=== PATIENT | male | born 1985 | race Caucasian/White ===

== ENCOUNTER 2017-10-20 08:46 | Emergency (ER) | payer MEDICAID, OTHER ==
[2017-10-20 08:54] VITALS: BMI 25.7
[2017-10-20 08:55] VITALS: PULSE 74; RESP 16; TEMP 97.9; O2SAT 98
[2017-10-20 08:57] VITALS: BP 120/77
--- NOTE | 2017-10-20 09:22 | C.PDOC ---
History Of Present Illness 31 years old male presents to the ED for evaluation of bilateral great toe pain for the past 10 years associated with callus. Patient reports pain is 6 out of 10 scale and worsens when wearing shoes for work. [place]. Patient denies any trauma, fever or chills. PMD: non provided Time Seen by Provider: 10/20/17 09:05 Chief Complaint (Nursing): Lower Extremity Problem/Injury History Per: Patient History/Exam Limitations: no limitations Onset/Duration Of Symptoms: Other (10 years) Past Medical History Reviewed: Historical Data, Nursing Documentation, Vital Signs Vital Signs: Last Vital Signs Temp 97.9 F 10/20/17 08:53 Pulse 74 10/20/17 08:53 Resp 16 10/20/17 08:53 BP 120/77 10/20/17 08:56 Pulse Ox 98 10/20/17 15:37 - Medical History PMH: No Chronic Diseases Surgical History: No Surg Hx Family History: States: Unknown Family Hx - Social History Hx Tobacco Use: No Hx Alcohol Use: No Hx Substance Use: No - Immunization History Hx Tetanus Toxoid Vaccination: No Hx Influenza Vaccination: No Hx Pneumococcal Vaccination: No Review Of Systems Except As Marked, All Systems Reviewed And Found Negative. Constitutional: Negative for: Fever, Chills Musculoskeletal: Positive for: Foot Pain (Bilateral great toe pain) Physical Exam - Physical Exam Appears: Non-toxic, No Acute Distress Extremity: Other (Bilateral callus to medial aspect of great toes) ED Course And Treatment O2 Sat by Pulse Oximetry: 98 (RA) Pulse Ox Interpretation: Normal Medical Decision Making Medical Decision Making: Time: 918 Patient is stable for discharge with referrals to a rn military. Disposition - Disposition Referrals: [facility] [place] [Outside] Disposition: HOME/ ROUTINE Disposition Time: :19 Condition: STABLE Additional Instructions: Siga en [facility] [place] ibuprofen para el dolor. Use zapatos abiertos. Instructions: Corns and Calluses Forms: Gen Discharge Inst Ukrainian - POA Present On Arrival: None - Clinical Impression Clinical Impression: [place] or callus - Scribe Statement The provider has reviewed the documentation as recorded by the Scribe Shante Snow
== END 2017-10-20 09:38 | disposition home or self-care (01) ==
LOC: C.ER 08:46
DX: L84 Corns and callosities (principal)

== ENCOUNTER 2018-04-02 10:26 | Emergency (ER) | payer MEDICAID ==
[2018-04-02 10:26] VITALS: BMI 25.7
[2018-04-02 10:42] VITALS: RESP 16; TEMP 97.6; O2SAT 98
[2018-04-02] MEDS ORDERED: Lidocaine 5% Patch TD STA (11:28)
[2018-04-02] MEDS ORDERED: Lidocaine 5% Patch TD ONE (11:47)
--- NOTE | 2018-04-02 12:09 | RAD ---
Date of service: 04/02/2018 PROCEDURE: Radiographs of the Lumbar Spine. HISTORY: pain COMPARISON: No prior. FINDINGS: BONES: Alignment appears satisfactory. No listhesis. No acute displaced fracture identified. DISC SPACES: Unremarkable. OTHER FINDINGS: None. IMPRESSION: No acute displaced fracture or subluxation identified.
[2018-04-02 12:14] LABS: URINE BILIRUBIN NEGATIVE (NEGATIVE); URINE BLOOD NEGATIVE (NEGATIVE); URINE CLARITY Clear (Clear); URINE COLOR Yellow (YELLOW); URINE GLUCOSE (UA) NORMAL (Normal); URINE LEUKOCYTE ESTERASE NEG Leu/uL (Negative); URINE PROTEIN NEGATIVE (NEGATIVE)
--- NOTE | 2018-04-02 13:19 | C.PDOC ---
History Of Present Illness 32 y/o male presents to ED with c/o low back pain for 1 week after heavy lifting while at work. Patient denies fever, chills, abdominal pain, nausea, vomiting, dysuria, hematuria, bowel/bladder incontinence, saddle anesthesia or any other complaints at this time. Time Seen by Provider: 04/02/18 11:15 Chief Complaint (Nursing): Back Pain History Per: Patient History/Exam Limitations: no limitations Onset/Duration Of Symptoms: Days Current Symptoms Are (Timing): Still Present Quality Of Discomfort: "Pain" Past Medical History Reviewed: Historical Data, Nursing Documentation, Vital Signs Vital Signs: Last Vital Signs Temp 97.6 F 04/02/18 10:40 Pulse 61 04/02/18 10:40 Resp 16 04/02/18 10:40 BP 107/74 04/02/18 10:40 Pulse Ox 98 04/02/18 10:40 - Medical History PMH: No Chronic Diseases Surgical History: No Surg Hx Family History: States: No Known Family Hx - Social History Hx Tobacco Use: No Hx Alcohol Use: No Hx Substance Use: No - Immunization History Hx Tetanus Toxoid Vaccination: No Hx Influenza Vaccination: No Hx Pneumococcal Vaccination: No Review Of Systems Constitutional: Negative for: Fever, Chills Gastrointestinal: Negative for: Nausea, Vomiting, Abdominal Pain Genitourinary: Negative for: Dysuria, Hematuria Musculoskeletal: Positive for: Back Pain. Negative for: Neck Pain Skin: Negative for: Rash Physical Exam - Physical Exam Appears: Non-toxic, No Acute Distress Skin: Warm, Dry, No Rash Head: Atraumatic, Normacephalic Eye(s): bilateral: Normal Inspection Oral Mucosa: Moist Neck: Normal ROM, Supple Cardiovascular: Rhythm Regular Respiratory: Normal Breath Sounds, No Rales, No Rhonchi, No Wheezing Gastrointestinal/Abdominal: Soft, No Tenderness, No Guarding, No Rebound Back: No CVA Tenderness, No Muscle Spasm, Paraspinal Tenderness, Other (Lumbar tenderness) Extremity: Normal ROM, No Pedal Edema, Capillary Refill (<2 seconds) Neurological/Psych: Oriented x3, Normal Speech, Normal Cognition, Normal Motor, Normal Sensation ED Course And Treatment O2 Sat by Pulse Oximetry: 98 (RA) Pulse Ox Interpretation: Normal Progress Note: Toradol, Valium and lidoderm patch administered. On re evaluation patient states pain improved, patient ambulatory with no complaints and feels better. Patient discharged with follow up to PMD in 1-2 days. Disposition - Disposition Referrals: Lj Cabezas MD [Medical Doctor] - Disposition: HOME/ ROUTINE Disposition Time: 13:17 Condition: STABLE Additional Instructions: Follow up with PMD within 1-2 days. Return to ED if feel worse. Prescriptions: Lidocaine 5% [Lidoderm] 1 patch TP DAILY #30 patch Ibuprofen [Motrin Tab] 600 mg PO Q8 #30 tab diaZEpam [Valium] 2 mg PO TID #15 tab Instructions: Low Back Pain in Adults Forms: [employer] (Jordanian), Work Excuse Print Language: BELARUSIAN - Clinical Impression Clinical Impression: Low back pain - PA / STUDENT ACTIVITIES DIRECTOR / Resident Statement MD/DO has reviewed & agrees with the documentation as recorded. - Scribe Statement The provider has reviewed the documentation as recorded by the Scribtiffany Donnelly All medical record entries made by the Salibtiffany were at my direction and personally dictated by me. I have reviewed the chart and agree that the record accurately reflects my personal performance of the history, physical exam, medical decision making, and the department course for this patient. I have also personally directed, reviewed, and agree with the discharge instructions and disposition.
[2018-04-02 13:28] VITALS: BP 111/69; PULSE 68
== END 2018-04-02 13:27 | disposition home or self-care (01) ==
LOC: C.ER 10:26
DX: M54.5 Low back pain (principal)
CPT/HCPCS: 72100; 81001; 96372; 99283; J1885